=== PATIENT | male | born 1935 | race Caucasian/White ===

== ENCOUNTER 2019-12-07 16:25 | Inpatient (IN) | payer MEDICARE, OTHER ==
[~2019-12-07] VITALS: Ht 188 cm; Wt 74.0 kg
[~2019-12-07 16:25] MED LIST: ARICEPT 5 MG TAB5 MG PO; ASPIR 8181 M1 PO; B-COMPLEX PLUS1 EACH PO; COREG25 MG PO; FOLBIC RF TABL1 EACH PO; FOLIC ACID1 MG PO; HYDROCHLOROTH12.5 M1 PO; LIPITOR 40 MG T40 M1 PO; LISINOPRIL20 MG PO; NAMENDA 10 MG T10 MG PO; VITAMIN D1000 UNI1 PO
[2019-12-07 17:01] VITALS: BP 155/65
[2019-12-07 17:08] LABS: ABSOLUTE LYMPHOCYTES 0.9 thou/uL (0.8-5.3); ABSOLUTE MONOCYTES 0.3 thou/uL (0.0-1.2); BASOPHILS 0.8 %; EOSINOPHILS 0.5 %; HEMATOCRIT 40.2 % (42.0-52.0); HEMOGLOBIN 13.5 gm/dL (14.0-18.0); LYMPHOCYTES 21.2 %; MCH 29.3 pg (26.0-34.0); MCHC 33.6 g/dL (28.0-37.0); MCV 87.3 fL (80.0-100.0); MONOCYTES 7.7 %; MPV 11.4 fl. (7.2-11.1); NUCLEATED RBCS 0 /100WBC; PLATELET COUNT* 85 thou/uL (150-400); POLYS 69.8 %; RDW-CV 15.8 % (10.5-14.5); WBC 4.3 thou/uL (4.0-11.0)
[2019-12-07] MEDS ORDERED: PLAVIX 75 MG TA75 MG PO (17:11)
[2019-12-07 17:14] LABS: CREATININE 1.4 mg/dL (0.6-1.3); POTASSIUM 3.1 mmol/L (3.5-5.1)
[2019-12-07] MEDS ORDERED: FUROSEMIDE 20 M20 M1 PO (17:14)
[2019-12-07] MEDS ORDERED: PROTONIX40 M2 PO (17:14)
[2019-12-07] MEDS ORDERED: DULCOLAX STOOL100 M1 PO (17:14)
[2019-12-07 17:15] LABS: APTT 26.8 Seconds (25.0-31.3); INR 1.1; PROTIME 10.8 Seconds (9.20-11.50)
[2019-12-07] MEDS ORDERED: SEROQUEL 50 MG50 M1 PO (17:15)
[2019-12-07] MEDS ORDERED: KLOR-CON 10 ER10 MEQ PO (17:15)
[2019-12-07 17:25] LABS: ALBUMIN 2.8 g/dL (3.4-5.0); TOTAL BILIRUBIN 0.8 mg/dL (<0.1-1.0); TOTAL PROTEIN 6.2 g/dL (6.4-8.2)
[2019-12-07 19:18] VITALS: BP 178/74
[2019-12-07 19:48] VITALS: BP 147/68
[2019-12-07 20:06] LABS: MAGNESIUM 2.1 mg/dL (1.8-2.4); PHOSPHORUS* 2.8 mg/dL (2.5-4.9)
[2019-12-07] MEDS ORDERED: NAMENDA XR21 MG PO (22:05)
[2019-12-08 05:32] LABS: ABSOLUTE MONOCYTES 0.4 thou/uL (0.0-1.2); ABSOLUTE NEUTROPHILS 3.1 thou/uL (1.6-8.1); BASOPHILS 0.2 %; EOSINOPHILS 0.6 %; HEMATOCRIT 37.7 % (42.0-52.0); HEMOGLOBIN 12.5 gm/dL (14.0-18.0); LYMPHOCYTES 21.6 %; MCHC 33.2 g/dL (28.0-37.0); MCV 87.3 fL (80.0-100.0); MONOCYTES 8.8 %; MPV 12.1 fl. (7.2-11.1); NUCLEATED RBCS 0 /100WBC; PLATELET COUNT* 83 thou/uL (150-400); POLYS 68.8 %; RBC 4.31 mil/uL (4.50-6.00); RDW-CV 15.4 % (10.5-14.5); WBC 4.5 thou/uL (4.0-11.0)
[2019-12-08 06:02] LABS: ALBUMIN 2.7 g/dL (3.4-5.0); CALCIUM 7.4 mg/dL (8.5-10.1); CREATININE 1.2 mg/dL (0.6-1.3); MAGNESIUM 2.1 mg/dL (1.8-2.4); TOTAL BILIRUBIN 0.6 mg/dL (<0.1-1.0); TOTAL PROTEIN 6.1 g/dL (6.4-8.2)
[2019-12-08 07:26] LABS: PROTIME 10.7 Seconds (9.20-11.50)
[2019-12-08 08:00] VITALS: BP 182/73
--- NOTE | 2019-12-08 11:22 | EKG ---
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1935 Requested By: Servando Natarajan Order Number: [id number] MD: Jose F Martinez Measurements Intervals [place] Rate: 59 P: 78 MA: 203 QRS: 97 QRSD: 162 T: 36 QT: 500 QTc: 496 Interpretive Statements Sinus rhythm Atrial premature complex RBBB and LPFB No previous ECG available for comparison Electronically Signed On 12-08-2019 11:20:24 CDT by Jose F Martinez [email or web address] <ELECTRONICALLY SIGNED> By: Bruce Martinez MD, [facility] 12/08/19 1120 1634 1634 Bruce Martinez MD, [facility] /EPI
[2019-12-08 12:00] VITALS: BP 193/87
[2019-12-08 16:00] VITALS: BP 170/70
[2019-12-08 20:40] VITALS: BP 165/74
[2019-12-09 04:00] VITALS: BP 147/81
[2019-12-09 07:45] VITALS: BP 155/76
[2019-12-09 11:51] VITALS: BP 171/75
[2019-12-09 16:08] VITALS: BP 168/68
[2019-12-09 20:30] VITALS: BP 168/81
[2019-12-10 04:00] VITALS: BP 180/80
[2019-12-10 06:23] LABS: ABSOLUTE LYMPHOCYTES 0.9 thou/uL (0.8-5.3); ABSOLUTE MONOCYTES 0.4 thou/uL (0.0-1.2); ABSOLUTE NEUTROPHILS 2.7 thou/uL (1.6-8.1); BASOPHILS 0.2 %; EOSINOPHILS 0.9 %; HEMATOCRIT 38.6 % (42.0-52.0); HEMOGLOBIN 12.8 gm/dL (14.0-18.0); LYMPHOCYTES 22.9 %; MCH 28.9 pg (26.0-34.0); MCHC 33.3 g/dL (28.0-37.0); MCV 86.9 fL (80.0-100.0); MONOCYTES 9.1 %; NUCLEATED RBCS 0 /100WBC; PLATELET COUNT* 85 thou/uL (150-400); POLYS 66.9 %; RBC 4.44 mil/uL (4.50-6.00); RDW-CV 15.5 % (10.5-14.5)
[2019-12-10 06:37] LABS: INR 1.1
[2019-12-10 06:49] LABS: ALBUMIN 2.7 g/dL (3.4-5.0); CALCIUM 7.7 mg/dL (8.5-10.1); CREATININE 1.2 mg/dL (0.6-1.3); POTASSIUM 3.5 mmol/L (3.5-5.1); TOTAL BILIRUBIN 0.6 mg/dL (<0.1-1.0); TOTAL PROTEIN 6.3 g/dL (6.4-8.2)
[2019-12-10 07:30] VITALS: BP 165/78
[2019-12-10 12:07] VITALS: BP 177/82
--- NOTE | 2019-12-10 15:52 | EKG ---
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1935 Requested By: Zoraida Walker Order Number: [id number] Reading MD: Zak Henson Measurements Intervals [place] Rate: 68 P: 77 MA: 187 QRS: 96 QRSD: 158 T: 32 QT: 492 QTc: 524 Interpretive Statements Sinus rhythm Atrial premature complexes RBBB and LPFB Baseline wander in lead(s) V1 Compared to ECG 12/07/2019 16:34:09 No significant changes Electronically Signed On 12-10-2019 15:51:21 CDT by Zak Henson [email or web address] <ELECTRONICALLY SIGNED> By: Zak Henson MD, [facility] 12/10/19 1551 0801 0801 Zak Henson MD, [facility] /EPI
[2019-12-10 16:56] VITALS: BP 175/76
--- NOTE | 2019-12-10 16:56 | 2DMMODE ---
[place] [address] 2 D/M-MODE ECHOCARDIOGRAM Name: MARCI KAISER Room: [address] ADM IN .Ángela.#: [id number] Admission: 12/07/19 Attend Phys: Zoraida meraz Sa Discharge: Date of : 35 Date of Service: 12/10/19 1654 Report #: [id number] THIS REPORT FOR: cc: Seth Ace MD, Todd A. MD Blick,Zak Salgado MD [facility] ~ APPROVED REPORT Study performed: 12/10/2019 14:54:23 EXAM: Comprehensive 2D, Doppler, and color-flow Echocardiogram Patient Location: In-Patient Room #: [facility] Status: routine BSA: 2.08 HR: 68 bpm BP: 180/80 mmHg Rhythm: NSR Other Information Study Quality: Good Indications Dyspnea Syncope 2D Dimensions IVSd: 13.84 (7-11mm) LVOT Diam: 22.25 (18-24mm) LVDd: 50.15 mm PWd: 10.96 (7-11mm) Ascending Ao: 31.76 (22-36mm) LVDs: 35.41 (25-40mm) Aortic Root: 34.73 mm Volumes Left Atrial Volume (Systole) LA ESV Index: 32.30 mL/m2 Aortic Valve AoV Peak Rd.: 1.03 m/s AO Peak Gr.: 4.24 mmHg LVOT Max P.59 mmHg AO Mean Gr.: 2.12 mmHg LVOT Mean P.15 mmHg LVOT Max V: 0.80 m/s AO V2 VTI: 16.54 cm LVOT Mean V: 0.49 m/s LUISANA (VTI): 3.63 cm2 LVOT V1 VTI: 15.43 [place] [address] 2 D/M-MODE ECHOCARDIOGRAM Name: MARCI KAISER Room: [address] IN .R.#: [id number] Admission: 12/07/19 Attend Phys: Zoraida meraz Sa Discharge: Date of : 35 Date of Service: 12/10/19 1654 Report #: [id number] [place]: 2.83 m/s2 AI PHT: 354.41 ms Mitral Valve E/A Ratio: 0.82 MV Decel. Time: 246.[address] ms MV E [address] 0.50 m/s MV PHT: 71.50 ms MVA (PHT): 3.08 cm2 TDI E/Lateral E': 5.56 E/Medial E': 7.[address] 0.07 m/s Lateral E' Rd.: 0.09 m/s Left Ventricle The left ventricle is normal size. There is normal LV segmental wall motion. Mild concentric left ventricular hypertrophy. Left ventricular systolic function is normal. The left ventricular ejection fraction is within the normal range. LVEF is 55-60%. Grade I - abnormal relaxation pattern. Right Ventricle The right ventricle is normal size. The right ventricular systolic function is normal. Atria Left atrium is mildly dilated. The right atrium size is normal. Aortic Valve The Aortic valve is sclerotic. Mild aortic regurgitation. There is no aortic valvular stenosis. Mitral Valve The mitral valve is normal in structure. There is no mitral valve regurgitation noted. No evidence of mitral valve stenosis. Tricuspid Valve The tricuspid valve is normal in structure. Trace tricuspid regurgitation. Unable to assess PA pressure. Pulmonic Valve Pulmonic valve is not well visualized. There is no pulmonic [place] [address] 2 D/M-MODE ECHOCARDIOGRAM Name: MARCI KAISER Room: [address] IN [facility].#: [id number] Admission: 12/07/19 Attend Phys: Zoraida meraz Sa Discharge: Date of : 35 Date of Service: 12/10/19 1654 Report #: [id number] Great Vessels The aortic root is normal in size. IVC is normal in size and collapses >50% with inspiration. Pericardium There is no pericardial effusion. <Conclusion> Mild concentric left ventricular hypertrophy. LVEF is 55-60%. The Aortic valve is sclerotic. Mild aortic regurgitation. Left atrium is mildly dilated. <ELECTRONICALLY SIGNED> By: Zak Henson MD, FACC 12/10/191653 53 53 Zak Henson MD, FACC /INF
--- NOTE | 2019-12-10 17:26 | CON ---
[address] [address] CONSULTATION Name: MARCI KAISER Room: [address] ADM IN M.R.#: [id number] Admission: 12/07/19 Attend Phys: Zoraida Mary Discharge: Date of : 35 Report #: [id number] THIS REPORT FOR: //name// cc: Seth Ace MD, Todd A. MD ~ THIS REPORT FOR: //name// CC: Zoraida Kendrick DATE OF SERVICE: 12/10/2019 CARDIOLOGY CONSULTATION HISTORY OF PRESENT ILLNESS: The patient is an 84-year-old demented white male who I was asked to see in the hospital today after he apparently had a fall. The history is obtained from the patient as well as some old records. There are no family members available. The patient was brought to the Emergency Room 3 days ago. He has a long history of dementia. [facility]. He apparently had fallen recently He had had some loose stools. He was brought here to [place] by ambulance. On arrival here, his blood pressure was normal. He was in sinus rhythm. He was admitted for further evaluation and treatment. According to the notes, the patient denied any chest pain, shortness of breath, palpitations. PAST MEDICAL AND SURGICAL HISTORY: Significant for coronary artery bypass surgery. He does have a history of hypertension. MEDICATIONS: His medications at the long term consist of: 1. Aricept. 2. Aspirin. 3. Carvedilol. 4. Plavix. 5. Lasix. 6. Protonix. 7. Potassium. 8. Seroquel. 9. Lipitor. ALLERGIES: He has a previous intolerance to LISINOPRIL. PHYSICAL EXAMINATION: GENERAL: Revealed an elderly, frail-appearing male, lying in bed, appeared in no distress. VITAL SIGNS: He had a blood pressure of 160/80, pulse 60. He was afebrile. HEENT: He is anicteric. Conjunctivae are pink. Mucous [place] [address] CONSULTATION Name: JOSE KAISERO Room: [address] IN [facility].#: [id number] Admission: 12/07/19 Attend Phys: Zoraida Mary Discharge: Date of : 35 Report #: [id number] NECK: Veins do not appear distended. CHEST: Clear to auscultation. CARDIOVASCULAR: Regular rate and rhythm. No murmurs. ABDOMEN: Soft. EXTREMITIES: Had no edema. SKIN: Warm and dry. NEUROLOGIC: Nonfocal. His workup on admission showed a sinus rhythm with a right bundle-branch block. No significant ST or T-wave change. On his workup, he had a portable chest x-ray on admission that showed atelectasis. LABORATORY DATA: Sodium 145, creatinine 1.2. Liver function studies were normal. Albumin 2.7. Troponins are 0.06. BNP 1602. White blood cell count 4.0, hemoglobin 12.8. IMPRESSION AND RECOMMENDATIONS: 1. Fall. The patient was noted be in sinus rhythm. Possible dehydration. 2. Hypertension. The patient is on a beta moriah. 3. Previous coronary artery bypass surgery. I would continue an aspirin a day. 4. Hyperlipidemia. The patient is on a statin drug. 5. Dementia. <ELECTRONICALLY SIGNED> By: Zak Henson MD, FACC 12/10/19 1726 1055 1217Zak Henson MD, FACC /nt
[2019-12-10 20:20] VITALS: BP 193/87
[2019-12-11 04:00] VITALS: BP 184/77
[2019-12-11 05:36] LABS: HEMATOCRIT 38.9 % (42.0-52.0); HEMOGLOBIN 13.1 gm/dL (14.0-18.0); MCH 28.9 pg (26.0-34.0); MCHC 33.6 g/dL (28.0-37.0); MPV 10.7 fl. (7.2-11.1); RBC 4.53 mil/uL (4.50-6.00); RDW-CV 15.6 % (10.5-14.5); WBC 4.3 thou/uL (4.0-11.0)
[2019-12-11 05:45] LABS: CREATININE 1.2 mg/dL (0.6-1.3); MAGNESIUM 1.9 mg/dL (1.8-2.4)
[2019-12-11] MEDS ORDERED: HYDRALAZINE 10M10 MG PO (07:34)
[2019-12-11] MEDS ORDERED: COREG6.25 MG PO (07:34)
[2019-12-11 08:00] VITALS: BP 152/68
[2019-12-11 12:00] VITALS: BP 148/46
[2019-12-11 15:26] VITALS: BP 148/46
[2019-12-11 16:00] VITALS: BP 138/56
== END 2019-12-11 18:04 | DRG 177 ==
LOC: M.ERS 16:25 → M.ORTHSURG 18:21 → M.TBA-ER 18:21 → M.ORTHSURG 19:03
PROVIDERS: Emergency Medicine Emergency Medical Services; Internal Medicine; ADMIT Family Medicine
DX: U07.1 COVID-19 (principal); N17.0 Acute kidney failure with tubular necrosis; E43 Unspecified severe protein-calorie malnutrition; A08.4 Viral intestinal infection, unspecified; D69.6 Thrombocytopenia, unspecified; E87.6 Hypokalemia; E83.51 Hypocalcemia; F03.90 Unspecified dementia, unspecified severity, without behavioral disturbance, psychotic disturbance, mood disturbance, and anxiety; T50.905A Adverse effect of unspecified drugs, medicaments and biological substances, initial encounter; R00.1 Bradycardia, unspecified; E86.0 Dehydration; I10 Essential (primary) hypertension; R55 Syncope and collapse; E78.5 Hyperlipidemia, unspecified; I25.10 Atherosclerotic heart disease of native coronary artery without angina pectoris; Z68.20 Body mass index [BMI] 20.0-20.9, adult; Z79.82 Long term (current) use of aspirin; Z79.899 Other long term (current) drug therapy; Z95.1 Presence of aortocoronary bypass graft

== ENCOUNTER 2020-03-15 08:54 | Emergency (ER) | payer MEDICARE, OTHER ==
[~2020-03-15] VITALS: Ht 175.3 cm; Wt 77.1 kg
[~2020-03-15 08:54] MED LIST changes: +COREG6.25 MG PO; +DULCOLAX STOOL100 M1 PO; +FUROSEMIDE 20 M20 M1 PO; +HYDRALAZINE 10M10 MG PO; +KLOR-CON 10 ER10 MEQ PO; +NAMENDA XR21 MG PO; +PLAVIX 75 MG TA75 MG PO; +PROTONIX40 M2 PO; +SEROQUEL 50 MG50 M1 PO
[2020-03-15] MEDS ORDERED: VITAMIN B-121000 MC2 SUBLING (09:09)
[2020-03-15] MEDS ORDERED: NORVASC 2.5 MG2.5 M1 PO (09:09)
[2020-03-15] MEDS ORDERED: DERMACINRX5000 UNIT PO (09:10)
[2020-03-15 09:26] LABS: ABSOLUTE BASOPHILS 0.1 thou/uL (0.0-0.2); ABSOLUTE EOSINOPHILS 0.2 thou/uL (0.0-0.7); ABSOLUTE LYMPHOCYTES 1.4 thou/uL (0.8-5.3); ABSOLUTE MONOCYTES 0.4 thou/uL (0.0-1.2); ABSOLUTE NEUTROPHILS 3.6 thou/uL (1.6-8.1); BASOPHILS 1.3 %; EOSINOPHILS 4.2 %; HEMATOCRIT 38.9 % (42.0-52.0); HEMOGLOBIN 13.2 gm/dL (14.0-18.0); LYMPHOCYTES 24.8 %; MCH 30.5 pg (26.0-34.0); MCHC 33.9 g/dL (28.0-37.0); MCV 90.1 fL (80.0-100.0); MONOCYTES 7.1 %; MPV 9.8 fl. (7.2-11.1); NUCLEATED RBCS 0 /100WBC; PLATELET COUNT* 121 thou/uL (150-400); POLYS 62.6 %; RBC 4.32 mil/uL (4.50-6.00); WBC 5.8 thou/uL (4.0-11.0)
[2020-03-15 09:33] LABS: CREATININE 1.2 mg/dL (0.6-1.3)
[2020-03-15 09:38] LABS: ALBUMIN 2.9 g/dL (3.4-5.0); TOTAL BILIRUBIN 0.5 mg/dL (<0.1-1.0); TOTAL PROTEIN 6.1 g/dL (6.4-8.2)
[2020-03-15 09:48] LABS: ACETAMINOPHEN < 2 ug/mL (10-30); SALICYLATE < 2.8 mg/dL (2.8-20.0)
[2020-03-15 09:49] LABS: ALCOHOL < 10 mg/dL (<10)
[2020-03-15 10:27] LABS: URINE BILIRUBIN NEGATIVE (Negative); URINE BLOOD TRACE (Negative); URINE CLARITY SL CLOUDY; URINE COLOR YELLOW; URINE GLUCOSE-RANDOM NEGATIVE (Negative); URINE KETONES NEGATIVE (Negative); URINE LEUKOCYTES-REFLEX NEGATIVE (Negative); URINE NITRITE-REFLEX NEGATIVE (Negative); URINE PROTEIN NEGATIVE (Negative); URINE SPECIFIC GRAVITY 1.015 (1.005-1.030); URINE UROBILINOGEN 0.2 E.U./dl (0.2-1.0)
[2020-03-15 10:35] LABS: AMP/METHAMP Negative (Negative); BARBITURATES Negative (Negative); BENZODIAZEPINES Negative (Negative); COCAINE Negative (Negative); METHADONE Negative (Negative); OPIATES Negative (Negative); PCP Negative (Negative); THC Negative (Negative)
[2020-03-15 11:55] VITALS: BP 137/48
== END 2020-03-15 11:55 | disposition home or self-care (01) ==
LOC: M.ERS 08:54
PROVIDERS: Emergency Medicine Emergency Medical Services
DX: F03.90 Unspecified dementia, unspecified severity, without behavioral disturbance, psychotic disturbance, mood disturbance, and anxiety (principal)

== ENCOUNTER → 2021-02-04 | Outpatient (CLI) | payer OTHER ==
[~2021-02-04] MED LIST changes: +CARVEDILOL12.5 MG PO; +DERMACINRX5000 UNIT PO; +GABAPENTIN 100100 MG PO; +LIPITOR80 MG PO; +MEMANTINE HCL10 MG PO; +NORVASC 2.5 MG2.5 M1 PO; +QUETIAPINE FUMA50 MG PO; +SEROQUEL 100 M100 M1 PO; +SEROQUEL 25 MG25 M1 PO; +VITAMIN B-121000 MC2 SUBLING; +VITAMIN D325 MC1 PO
--- NOTE | 2021-02-04 11:13 | 2DMMODE ---
[place] [address] 2 D/M-MODE ECHOCARDIOGRAM Name: MARCI KAISRE Room: [facility]#: [id number] Admission: 02/04/21 Attend Phys: Marco Ward MD Discharge: Date of : 35 Date of Service: 02/04/21 1113 Report #: [id number] THIS REPORT FOR: cc: Seth Ace MD, Todd A. MD Blick,Zak Salgado MD [facility] ~ APPROVED REPORT Study performed: 02/04/2021 09:57:10 EXAM: Comprehensive 2D, Doppler, and color-flow Echocardiogram Patient Location: Out-Patient BSA: 1.93 HR: 74 bpm BP: 134/82 mmHg Other Information Study Quality: Good Indications Ischemic heart disease 2D Dimensions IVSd: 13.61 (7-11mm) LVOT Diam: 20.89 (18-24mm) LVDd: 46.93 mm PWd: 11.71 (7-11mm) Ascending Ao: 31.19 (22-36mm) LVDs: 28.90 (25-40mm) Aortic Root: 30.40 mm Volumes Left Atrial Volume (Systole) LA ESV Index: 16.80 mL/m2 Aortic Valve AoV Peak Rd.: 1.01 m/s AO Peak Gr.: 4.12 mmHg LVOT Max P.05 mmHg AO Mean Gr.: 2.13 mmHg LVOT Mean P.95 mmHg LVOT Max V: 0.72 m/s AO V2 VTI: 18.59 cm LVOT Mean V: 0.45 m/s LUISANA (VTI): 2.82 cm2 LVOT V1 VTI: 15.27 cm AI [place]: 1.87 m/s2 AI PHT: 535.81 [place] [address] 2 D/M-MODE ECHOCARDIOGRAM Name: MARCI KASIER Room: [facility]#: [id number] Admission: 02/04/21 Attend Phys: Marco Ward MD Discharge: Date of : 35 Date of Service: 02/04/21 1113 Report #: [id number] Mitral Valve E/A Ratio: 0.62 MV Decel. Time: 198.91 ms MV E [address] 0.44 m/s MV PHT: 57.68 ms MVA (PHT): 3.81 cm2 TDI E/Lateral E': 6.29 E/Medial E': 6.[address] 0.07 m/s Lateral E' Rd.: 0.07 m/s Pulmonary Valve PV Peak Rd.: 0.77 m/s PV Peak Gr.: 2.39 mmHg Tricuspid Valve RAP Estimate: 5.00 mmHg TR Peak Gr.: 19.22 mmHg RVSP: 24.22 mmHg PA Pressure: 24.22 mmHg Left Ventricle The left ventricle is normal size. mild apical hypokinesis noted Mild concentric left ventricular hypertrophy. Left ventricular systolic function is borderline. LVEF is 50-55%. Grade I - abnormal relaxation pattern. Right Ventricle The right ventricle is normal size. The right ventricular systolic function is normal. Atria The left atrium size is normal. The right atrium size is normal. Aortic Valve Mild aortic valve sclerosis. Mild aortic regurgitation. There is no aortic valvular stenosis. Mitral Valve The mitral valve is normal in structure. There is no mitral valve regurgitation noted. No evidence of mitral valve stenosis. Tricuspid Valve The tricuspid valve is normal in structure. [place] [address] 2 D/M-MODE ECHOCARDIOGRAM Name: MARCI KAISER Room: [facility]#: [id number] Admission: 02/04/21 Attend Phys: Marco Ward MD Discharge: Date of : 35 Date of Service: 02/04/21 1113 Report #: [id number] Pulmonic Valve The pulmonary valve is normal in structure. Mild pulmonic regurgitation. Great Vessels The aortic root is normal in size. IVC is normal in size and collapses >50% with inspiration. Pericardium There is no pericardial effusion. <Conclusion> Mild concentric left ventricular hypertrophy. LVEF is 50-55%. mild apical hypokinesis noted Mild aortic valve sclerosis. Mild aortic regurgitation. <ELECTRONICALLY SIGNED> By: Zak Henson MD, [facility] 02/04/21 1113 12 12 Zak Henson MD, FACC /INF
== END ==
LOC: M.CRD 10:00
PROVIDERS: ATTEND Orthopaedic Surgery
DX: I08.8 Other rheumatic multiple valve diseases (principal); I25.9 Chronic ischemic heart disease, unspecified